=== PATIENT | female | born 1975 | race Caucasian/White ===

== ENCOUNTER 2016-09-18 09:34 | Observation (INO) | payer BC, OTHER ==
[~2016-09-18] VITALS: Ht 180.3 cm; Wt 96.0 kg
[~2016-09-18 09:34] MED LIST: BUPIVACAINE/PF-EPI 0.5% 1:200K ONE; OMEP40CA6 PO; RANI150C PO
[2016-09-18] MEDS ORDERED: MIDAZOLAM 1 MG/ML, 2ML ONE (09:46)
[2016-09-18] MEDS ORDERED: FENTANYL PF 250 MCG/5ML ONE ×2 (09:46→11:26)
[2016-09-18] MEDS ORDERED: LACTATED RINGERS 1,000 ML IV SCH ×2 (09:59→11:34)
[2016-09-18 10:07] VITALS: BP 120/78
[2016-09-18 10:13] LABS: HCG UR OBC PASS
[2016-09-18] MEDS ORDERED: SCOPOLAMINE PATCH, 1.5MG PATCH.TD72 TD ONE ×2 (10:24→10:30)
[2016-09-18] MEDS ORDERED: DEXAMETHASONE 4 MG/ML, 1ML ONE (10:29)
[2016-09-18] MEDS ORDERED: CEFAZOLIN 1,000 MG ONE (10:29)
[2016-09-18] MEDS ORDERED: ONDANSETRON 2MG/ML, 2ML ONE (10:29)
[2016-09-18] MEDS ORDERED: ROCURONIUM 10 MG/ML ONE (10:29)
[2016-09-18] MEDS ORDERED: KETOROLAC 30 MG/1 ML ONE (10:29)
[2016-09-18] MEDS ORDERED: PROPOFOL 10 MG/ML, 20ML ONE (10:29)
[2016-09-18] MEDS ORDERED: SUCCINYLCHOLINE 20 MG/ML, 10ML ONE (10:29)
[2016-09-18] MEDS ORDERED: METOCLOPRAMIDE 5 MG/ML, 2ML ONE (10:29)
[2016-09-18] MEDS ORDERED: hydrALAzine 20 MG/ML, 1ML IV PRN ×2 (11:00→12:00)
[2016-09-18] MEDS ORDERED: ONDANSETRON 2MG/ML, 2ML IVPush PRN ×2 (11:00→12:00)
[2016-09-18] MEDS ORDERED: EPHEDRINE 50 MG/ML, 1ML IVPush PRN (11:00)
[2016-09-18] MEDS ORDERED: FENTANYL PF 100 MCG/2ML IV PRN (11:00)
[2016-09-18] MEDS ORDERED: LABETALOL 5MG/ML, 20ML IV PRN (11:00)
[2016-09-18] MEDS ORDERED: MIDAZOLAM 1 MG/ML, 2ML IV PRN (11:00)
[2016-09-18] MEDS ORDERED: METOPROLOL 1 MG/ML, 5ML IV PRN (11:00)
[2016-09-18] MEDS ORDERED: MEPERIDINE/PF 25MG/0.5ML IVPush PRN (11:00)
[2016-09-18] MEDS ORDERED: PROMETHAZINE 25 MG/ML, 1ML IV PRN (11:00)
[2016-09-18] MEDS ORDERED: ACETAMINOPHEN 325 MG TABLET PO PRN (11:00)
[2016-09-18] MEDS ORDERED: OXYcodone 5 MG/5 ML ORAL.SOL UDC ONE ×2 (11:48→12:40)
[2016-09-18] MEDS ORDERED: FENTANYL PF 100 MCG/2ML ONE (11:48)
[2016-09-18] MEDS ORDERED: ACETAMINOPHEN 650 MG/20.3 ML UDC ONE (11:48)
[2016-09-18] MEDS ORDERED: ACETAMINOPHEN 325 MG TABLET ONE (11:48)
[2016-09-18] MEDS: OXYcodone 5 MG/5 ML ORAL.SOL UDC PO PRN ×2 (11:50→12:41)
[2016-09-18] MEDS ORDERED: FAMOTIDINE 20 MG/2 ML IV SCH (12:00)
[2016-09-18] MEDS ORDERED: ENALAPRILAT 1.25 MG/ML, 2ML IV PRN (12:00)
[2016-09-18] MEDS ORDERED: morphine SULFATE 10 MG/ML, 1ML IV PRN (12:00)
[2016-09-18] MEDS ORDERED: DIPHENHYDRAMINE 50 MG/ML, 1ML IV PRN (12:00)
[2016-09-18] MEDS ORDERED: LORazepam 2 MG/ML, 1ML IV PRN (12:00)
[2016-09-18] MEDS ORDERED: HYDROcodone/APAP 7.5-325MG/15ML UDC PO PRN (12:00)
[2016-09-18] MEDS ORDERED: HYDROmorphone 2 MG/ML, 1ML ONE (12:26)
[2016-09-18] MEDS: HYDROmorphone 1 MG/ML, 1ML IV PRN ×2 (12:28→12:39)
[2016-09-18] MEDS ORDERED: MORPHINE SULFATE 4 MG/ML, 1ML ONE (13:41)
[2016-09-19] MEDS ORDERED: ENOXAPARIN 40 MG/0.4 ML SQ SCH (09:00)
== END 2016-09-19 16:16 | disposition home or self-care (01) ==
LOC: OUT 09:34 → ORIP 11:34
PROVIDERS: ADMIT Thoracic Surgery (Cardiothoracic Vascular Surgery); ATTEND Thoracic Surgery (Cardiothoracic Vascular Surgery)
DX: K44.9 Diaphragmatic hernia without obstruction or gangrene (principal); K21.9 Gastro-esophageal reflux disease without esophagitis
CPT/HCPCS: 43281; 81025; G0378; J0330; J0690; J1100; J1170; J1885; J2250; J2270; J2405; J2704; J2765; J3010; J7120